=== PATIENT | male | born 1950 | race Caucasian/White ===

== ENCOUNTER 2020-04-12 13:43 | Inpatient (IN) | payer MEDICARE, BC ==
[2020-04-12] MEDS ORDERED: Acetaminophen 325 MG Tab PO PRN (13:57)
[2020-04-12] MEDS ORDERED: Ondansetron 4 MG/2 ML SDV IVPUSH PRN (13:57)
--- NOTE | 2020-04-12 14:09 | PCM.HP.2 ---
H&P History of Present Illness - General Date of Service: 04/12/20 Admit Problem/Dx: Admission Diagnosis/Problem Admission Diagnosis/Problem Acute respiratory failure with hypoxia Source of Information: Patient History Limitations: Reports: No Limitations - History of Present Illness Initial Comments - Free Text/Narative: This 69-year-old male with no significant past medical history presented to the respiratory clinic with worsening symptoms of fatigue, fever and dry cough. He was diagnosed with COVID-19 on April 02 with positive swab. He reports symptoms started mildly approximately 1 to 1-1/2 weeks ago with generalized body aches, runny nose, sore throat, and diarrhea and has progressively worsened to significant fever with a max temp at home of 102 F. Denies any overt loss of taste or smell. Today he reports worsening of shortness of breath and fatigue with any activity. He reports he showered prior to coming and had to take rests multiple times in the shower as well as getting dressed. He reports he has been eating and drinking yet appetite is slightly lower than normal but has been able to take in fluids well at home. Reports Tylenol and ibuprofen have been helping with fevers. Denies any chest pain or neck pain no palpitations. No abdominal pain no black or bloody bowel movements no concerns with urination. He denies any tobacco use recreational drug use or alcohol use. He reports no significant history of HTN, CAD or DM type II. In the clinic no leukocytosis noted, hemoglobin 13.1 D-dimer elevated at 1.69 sodium 135, BUN 17 CR 1.1, glucose 113, potassium 3.5. Flu swab is negative. Covid swab positive on April 05. Chest x-ray obtained in clinic reveals extensive interstitial and ground glass opacities of the bilateral hemothoraces likely representing developing multifocal bilateral infiltrates such as coronavirus infection. Hepatic function panel onto clinic labs. AST elevated at 113 ALT elevated at 178 and alk phos also elevated. He was noted to be satting 88% on room air placed on 2 L nasal cannula satting 94%. Provider requested admission due to hypoxia and COVID-19 infection. He will be admitted inpatient due to acute hypoxic respiratory failure and COVID-19 infection. - Related Data Allergies/Adverse Reactions: Allergies Allergy/AdvReac Type Severity Reaction Status Date / Time No Known Allergies Allergy Verified 04/12/20 14:59 Home Medications: Home Meds . [No Known Home Meds] 04/12/20 [History] Past Medical History Cardiovascular History: Reports: None. Denies: Afib, Blood Clots/VTE/DVT, CAD, Hypertension Respiratory History: Reports: None. Denies: Sleep Apnea, SOB Gastrointestinal History: Reports: None Genitourinary History: Reports: None Musculoskeletal History: Reports: None Endocrine/Metabolic History: Reports: None. Denies: Diabetes, Type II, Hypothyroidism Oncologic (Cancer) History: Reports: None - Past Surgical History Cardiovascular Surgical History: Reports: None GI Surgical History: Reports: None Male Surgical History: Reports: None Musculoskeletal Surgical History: Reports: None Social & Family History - Family History Family Medical History: No Pertinent Family History - Tobacco Use Tobacco Use Status *Q: Never Tobacco User - Alcohol Use Alcohol Use History: No Alcohol Use Frequency: Rarely, Socially - Recreational Drug Use Recreational Drug Use: No - Living Situation & Occupation Living situation: Reports: H&P Review of Systems - Review of Systems: Review Of Systems: See Below General: Reports: Fever, Chills, Malaise, Weakness, Fatigue HEENT: Reports: Rhinitis, Sore Throat. Denies: Visual Changes Pulmonary: Reports: Shortness of Breath, Cough. Denies: Sputum Cardiovascular: Reports: Dyspnea on Exertion. Denies: Chest Pain Gastrointestinal: Reports: No Symptoms, Diarrhea. Denies: Abdominal Pain, Nausea, Vomiting Genitourinary: Reports: No Symptoms. Denies: Dysuria, Frequency, Burning Musculoskeletal: Reports: No Symptoms Skin: Reports: No Symptoms Psychiatric: Reports: No Symptoms Neurological: Reports: No Symptoms Exam - Exam Exam: See Below - Exam Quality Assessment: Supplemental Oxygen (2 L nasal cannula), DVT Prophylaxis General: Alert, Oriented, Cooperative, Other (Appears to not feel well and fatigued) Neck: Supple, Trachea Midline Lungs: Clear to Auscultation, Normal Respiratory Effort Cardiovascular: Regular Rate, Regular Rhythm, Normal S1, Normal S2 GI/Abdominal Exam: Normal Bowel Sounds, Soft, Non-Tender Extremities: Normal Inspection, Normal Range of Motion, Non-Tender, No Pedal Edema Neuro Extensive - Mental Status: Alert, Oriented x3 Neuro Extensive - Motor, Sensory, Reflexes: CN II-XII Intact Psychiatric: Alert, Normal Affect, Normal Mood - Problem List (1) COVID-19 SNOMED Code(s): 143359953 ICD Code: U07.1 - COVID-19 Status: Acute Current Visit: Yes (2) Acute respiratory failure with hypoxia SNOMED Code(s): 32227593, 169407419 ICD Code: J96.01 - ACUTE RESPIRATORY FAILURE WITH HYPOXIA Status: Acute Current Visit: Yes (3) Transaminitis SNOMED Code(s): 007969368, 053491944 ICD Code: R74.01 - ELEVATION OF LEVELS OF LIVER TRANSAMINASE LEVELS Status: Acute Current Visit: Yes (4) D-dimer, elevated SNOMED Code(s): 056970020 ICD Code: R79.89 - OTHER SPECIFIED ABNORMAL FINDINGS OF BLOOD CHEMISTRY Status: Acute Current Visit: Yes Problem List Initiated/Reviewed/Updated: Yes Orders Last 24hrs: Active Orders 24 hr Category Date Time Status Patient Status [ADT] Routine ADT 04/12/20 13:57 Ordered Communication Order [RC] DAILY Care 04/12/20 13:57 Ordered Intake and Output [RC] QSHIFT Care 04/12/20 13:59 Ordered Oxygen Therapy [RC] PRN Care 04/12/20 13:57 Ordered Pulse Oximetry [RC] CONTINUOUS Care 04/12/20 13:59 Ordered RT Incentive Spirometry [RC] Q1HWA Care 04/12/20 13:57 Ordered Telemetry Monitoring [Cardiac Monitoring] [RC] . Care 04/12/20 14:05 Ordered DIRECTED Up With Assistance [RC] ASDIRECTED Care 04/12/20 13:57 Ordered VTE/DVT Education [RC] PER UNIT ROUTINE Care 04/12/20 13:57 Ordered Vital Signs [RC] Q4H Care 04/12/20 13:57 Ordered CBC WITH AUTO DIFF [HEME] AM Lab 04/13/20 05:11 Ordered COMPREHENSIVE METABOLIC PN,CMP [CHEM] AM Lab 04/13/20 05:11 Ordered HEPATIC FUNCTION PANEL,HFP [CHEM] Routine Lab 04/12/20 14:04 Ordered MAGNESIUM [CHEM] AM Lab 04/13/20 05:11 Ordered Acetaminophen [TylenoL] Med 04/12/20 13:57 Ordered 650 mg PO Q4H PRN Ondansetron [Zofran] Med 04/12/20 13:57 Ordered 4 mg IVPUSH Q4H PRN dexAMETHasone Med 04/12/20 14:15 Ordered 6 mg PO DAILY RT Acapella [RESPCARE] Routine Oth 04/12/20 13:57 Ordered Resuscitation Status Routine Resus Stat 04/12/20 13:57 Ordered Medication Orders Acetaminophen (Tylenol) 650 mg PO Q4H PRN PRN Reason: Pain (Mild 1-3)/fever Dexamethasone (Dexamethasone) 6 mg PO DAILY EMILY Stop: 04/21/20 09:01 Ondansetron HCl (Zofran) 4 mg IVPUSH Q4H PRN PRN Reason: Nausea Assessment/Plan Comment:: This 69-year-old male admitted with acute hypoxic respiratory failure and COVID- 19 infection 1. Acute hypoxic respiratory failure and COVID-19 infection -Chest x-ray reveals extensive bilateral lateral infiltrates D-dimer is elevated, will obtain a CTA of chest to rule out PE. -Dexamethasone 6 mg p.o. daily x10 days -Pending liver function will start remdesivir 200 mg x 1 dose then remdesivir 100 mg IV daily for 4 more days -Liver enzymes are slightly elevated but not 5 times normal limit monitor daily with remdesivir treatment. He Johnathan was notified of remdesivir given patient fact sheet on medication and agrees with usage. -Transaminitis and elevated D-dimer likely secondary to Covid infection. CTA chest pending -Oxygen to keep sats 92% or higher wean as possible to room air. -IS and Acapella frequently. -Combivent inhaler as needed wheezing shortness of breath -Prone positioning as much as possible or at least left lateral decubitus positioning -Lovenox 40 mg subcut daily VTE prophylaxis; Lovenox CODE STATUS: Full code Dispo: 2 to 3 days pending improvement - Mortality Measure Prognosis:: Good
[2020-04-12 14:29] LABS: BILIRUBIN INDIRECT 0.7
[2020-04-12] MEDS ORDERED: REMDESIVIR 200 MG in Sodium Chloride 0.9% 250 ML IV ONE (15:30)
[2020-04-12] MEDS ORDERED: Sodium Chloride 0.9% 500 ML IV ONE (16:00)
[2020-04-12] MEDS: Dexamethasone 4 MG Tab PO SCH (16:01)
[2020-04-12] MEDS: Enoxaparin 40 MG/0.4 ML Syringe SUBCUT SCH (16:02)
--- NOTE | 2020-04-12 17:12 | CT ---
Indication: Shortness of breath, positive for zimmerman virus 19 infection Technique: Volumetric multidetector CT images of the chest were obtained after the administration of IV contrast. 100 cc Isovue 370 low as molar intravenous contrast Comparison: Single view chest April 12, 2020 Findings: The thoracic inlet and thyroid gland are unremarkable. The thoracic aorta is nonaneurysmal. There is no central filling defect to suggest pulmonary embolism. There are reactive mediastinal and hilar lymph nodes as well as paratracheal lymph nodes. There is central bronchial thickening and minimal mucoid impaction of the lower lobe bronchi. There are extensive ground-glass and interstitial opacities seen throughout the bilateral hemithoraces commensurate with diffuse multifocal infiltrates which can be seen in the setting of zimmerman virus 19 infection There is no evidence of pulmonary mass or suspicious pulmonary nodule. The partially visualized upper abdominal viscera demonstrate mild pedal splenomegaly. The thoracic vertebral body heights are grossly maintained with minimal endplate Schmorl`s defects and degenerative disc disease. There is no significant spondylolisthesis or displaced fracture. Impression: No evidence of pulmonary embolus. Moderate bronchial thickening and extensive ground-glass and interstitial opacities consistent with history of zimmerman virus 19 infection. Please note that all CT scans at this facility use dose modulation, iterative reconstruction, and/or weight-based dosing when appropriate to reduce radiation dose to as low as reasonably achievable. Dictated by Jose D Sanches MD @ Apr 12 2020 4:53PM Signed by Dr. Jose D Sanches @ Apr 12 2020 5:10PM
[2020-04-12] MEDS ORDERED: Iopamidol 755 MG/ML 500 ML Multipack Bottle IVPUSH ONE (17:24)
[2020-04-12] MEDS: Albuterol/Ipratropium 4 GM Inhalation Spray INH PRN (20:29)
[2020-04-13 06:43] LABS: BLOOD UREA NITROGEN,BUN 18 mg/dL (7.0-18.0); CARBON DIOXIDE,CO2 27.4 mmol/L (21.0-32.0); CHLORIDE,CL 104 mmol/L (98-107); GLUCOSE RANDOM 138 mg/dL (74-106); POTASSIUM,K 3.5 mmol/L (3.5-5.1); SODIUM,NA 139 mmol/L (136-148)
[2020-04-13] MEDS: Pantoprazole 40 MG Tab.CR PO SCH (07:02)
[2020-04-13] MEDS: Dexamethasone 4 MG Tab PO SCH (08:19)
--- NOTE | 2020-04-13 09:37 | PCM.PN ---
- General Info Date of Service: 04/13/20 Subjective Update: Reports sleeping well overnight. Denies any fevers, chills, nausea or vomiting. Currently on 5 L NC. - Patient Data Vitals - Most Recent: Last Vital Signs Temp 35.7 C L 04/13/20 08:00 Pulse 74 04/13/20 08:00 Resp 18 04/13/20 08:00 BP 143/89 H 04/13/20 08:00 Pulse Ox 88 L 04/13/20 08:00 Weight - Most Recent: 93 kg I&O - Last 24 Hours: Intake & Output 04/12/20 04/13/20 04/13/20 22:59 06:59 14:59 Intake Total 580 750 Output Total 200 350 Balance 380 400 Lab Results Last 24 Hours: Laboratory Results - last 24 hr 04/12/20 04/13/20 04/13/20 Range/Units 11:43 05:55 05:55 WBC 5.13 (4.0-11.0) K/uL RBC 4.14 L (4.50-5.90) M/uL Hgb 11.6 L (13.0-17.0) g/dL Hct 34.6 L (38.0-50.0) % MCV 83.6 (80.0-98.0) fL MCH 28.0 (27.0-32.0) pg MCHC 33.5 (31.0-37.0) g/dL RDW Std Deviation 42.3 (28.0-62.0) fl RDW Coeff of Ortiz 14 (11.0-15.0) % Plt Count 285 (150-400) K/uL MPV 9.50 (7.40-12.00) fL Neut % (Auto) 83.8 H (48.0-80.0) % Lymph % (Auto) 7.6 L (16.0-40.0) % [place] % (Auto) 8.2 (0.0-15.0) % Eos % (Auto) 0.2 (0.0-7.0) % Baso % (Auto) 0.2 (0.0-1.5) % Neut # (Auto) 4.3 (1.4-5.7) K/uL Lymph # (Auto) 0.4 L (0.6-2.4) K/uL [place] # (Auto) 0.4 (0.0-0.8) K/uL Eos # (Auto) 0.0 (0.0-0.7) K/uL Baso # (Auto) 0.0 (0.0-0.1) K/uL Nucleated RBC % 0.0 /100WBC Nucleated RBCs # 0 K/uL Sodium 139 (136-148) mmol/L Potassium 3.5 (3.5-5.1) mmol/L Chloride 104 (98-107) mmol/L Carbon Dioxide 27.4 (21.0-32.0) mmol/L BUN 18 (7.0-18.0) mg/dL Creatinine 1.1 (0.8-1.3) mg/dL Est Cr Clr Drug Dosing 64.52 mL/min Estimated GFR (MDRD) > 60.0 ml/min Glucose 138 H (74-106) mg/dL Calcium 8.8 (8.5-10.1) mg/dL Magnesium 2.4 (1.8-2.4) mg/dL Total Bilirubin 1.1 H 0.5 (0.2-1.0) mg/dL Direct Bilirubin 0.40 (0.0-0.5) mg/dL Indirect Bilirubin 0.70 AST 114 H 62 H (15-37) IU/L ALT 178 H 151 H (14-63) IU/L Alkaline Phosphatase 248 H 210 H (46-116) U/L Total Protein 7.7 7.1 (6.4-8.2) g/dL Albumin 2.6 L 2.2 L (3.4-5.0) g/dL Globulin 5.1 H 4.9 H (2.6-4.0) g/dL Albumin/Globulin Ratio 0.5 L 0.5 L (0.9-1.6) Med Orders - Current: Current Medications Acetaminophen (Tylenol) 650 mg PO Q4H PRN PRN Reason: Pain (Mild 1-3)/fever Albuterol/Ipratropium (Combivent Respimat) 0 gm INH Q4H PRN PRN Reason: Dyspnea Last Admin: 04/12/20 20:29 Dose: 1 puff Documented by: Dexamethasone (Dexamethasone) 6 mg PO DAILY EMILY Stop: 04/21/20 09:01 Last Admin: 04/13/20 08:19 Dose: 6 mg Documented by: Enoxaparin Sodium (Lovenox) 40 mg SUBCUT Q24H [facility] Last Admin: 04/12/20 16:02 Dose: 40 mg Documented by: Remdesivir 100 mg/ Sodium (Chloride) 100 mls @ 100 mls/hr IV Q24H [facility] Stop: 04/16/20 15:59 Ondansetron HCl (Zofran) 4 mg IVPUSH Q4H PRN PRN Reason: Nausea Pantoprazole Sodium (Protonix) 40 mg PO ACBREAKFAST [facility] Last Admin: 04/13/20 07:02 Dose: 40 mg Documented by: Discontinued Medications Remdesivir 200 mg/ Sodium (Chloride) 250 mls @ 250 mls/hr IV ONETIME ONE Stop: 04/12/20 16:29 Last Admin: 04/12/20 16:01 Dose: 250 mls/hr Documented by: Sodium Chloride (Normal Saline) 500 mls @ 150 mls/hr IV ONETIME ONE Stop: 04/12/20 19:19 Last Admin: 04/12/20 16:01 Dose: 150 mls/hr Documented by: Iopamidol (Isovue Multipack-370 (76%)) 100 ml IVPUSH ONETIME ONE Stop: 04/12/20 17:25 Last Admin: 04/12/20 17:25 Dose: 100 ml Documented by: - Exam General: Alert, Oriented, Cooperative, No Acute Distress Lungs: Clear to Auscultation, Normal Respiratory Effort Cardiovascular: Regular Rate, Regular Rhythm GI/Abdominal Exam: Normal Bowel Sounds, Soft, Non-Tender, No Distention Extremities: Normal Inspection, No Pedal Edema Sepsis Event Note - Evaluation Sepsis Screening Result: No Definite Risk - Focused Exam Vital Signs: Vital Signs Temp Pulse Resp BP Pulse Ox 04/13/20 08:00 35.7 C L 74 18 143/89 H 88 L 04/13/20 04:49 36.1 C 81 18 150/80 H 95 04/13/20 03:07 94 L 04/13/20 02:00 95 04/13/20 00:59 36.1 C 89 18 148/75 H 94 L 04/12/20 23:00 94 L 04/12/20 22:00 72 95 - Problem List & Annotations (1) Acute respiratory failure with hypoxia SNOMED Code(s): 74410410, 748454938 Code(s): J96.01 - ACUTE RESPIRATORY FAILURE WITH HYPOXIA Status: Acute Current Visit: Yes (2) COVID-19 SNOMED Code(s): 120248097 Code(s): U07.1 - COVID-19 Status: Acute Current Visit: Yes (3) Transaminitis SNOMED Code(s): 555339068, 205320940 Code(s): R74.01 - ELEVATION OF LEVELS OF LIVER TRANSAMINASE LEVELS Status: Acute Current Visit: Yes - Problem List Review Problem List Initiated/Reviewed/Updated: Yes - Plan Plan:: Assessment and Plan: 1. Acute hypoxic respiratory failure and COVID-19 infection - Continue supplemental oxygen prn, Combivent, dexamethasone 6 mg qd, Remdesivir, PPI and encourage incentive spirometer use. Will order and transfuse 1 unit of convalescent plasma today. - Chest x-ray showed extensive bilateral lateral infiltrates. CTA of chest ruled out PE. - Patient given patient fact sheet for Remdesivir, risks explained and he consented for treatment. - Patient given patient fact sheet for convalescent plasma, risks explained and he consented for treatment. 2. Transaminitis, improved: - Will monitor. Will continue Remdesivir as LFT's not elevated by 5 x upper limit. 3. DVT prophylaxis: -Lovenox 40 mg subcut daily
[2020-04-13] MEDS: Enoxaparin 40 MG/0.4 ML Syringe SUBCUT SCH (14:48)
[2020-04-13] MEDS: REMDESIVIR 100 MG in Sodium Chloride 0.9% 100 ML IV SCH (14:49)
[2020-04-13] MEDS: Albuterol/Ipratropium 4 GM Inhalation Spray INH PRN (15:15)
[2020-04-14 06:52] LABS: BLOOD UREA NITROGEN,BUN 29 mg/dL (7.0-18.0); CARBON DIOXIDE,CO2 24.3 mmol/L (21.0-32.0); CHLORIDE,CL 106 mmol/L (98-107); GLUCOSE RANDOM 115 mg/dL (74-106); POTASSIUM,K 3.4 mmol/L (3.5-5.1); SODIUM,NA 141 mmol/L (136-148)
[2020-04-14] MEDS: Dexamethasone 4 MG Tab PO SCH (08:03)
[2020-04-14] MEDS: Pantoprazole 40 MG Tab.CR PO SCH (08:04)
--- NOTE | 2020-04-14 11:02 | PCM.PN ---
- General Info Date of Service: 04/14/20 - Review of Systems Systems Review Comment:: feeling better, shortness of breath improving - Patient Data Vitals - Most Recent: Last Vital Signs Temp 36.3 C 04/14/20 08:01 Pulse 77 04/14/20 08:01 Resp 20 04/14/20 08:01 BP 139/85 04/14/20 08:01 Pulse Ox 90 L 04/14/20 08:01 Weight - Most Recent: 93 kg I&O - Last 24 Hours: Intake & Output 04/13/20 04/14/20 04/14/20 22:59 06:59 14:59 Intake Total 1185 550 Balance 1185 550 Lab Results Last 24 Hours: Laboratory Results - last 24 hr 04/13/20 04/13/20 04/14/20 Range/Units 13:56 14:15 05:45 WBC 9.16 (4.0-11.0) K/uL RBC 3.96 L (4.50-5.90) M/uL Hgb 11.2 L (13.0-17.0) g/dL Hct 33.2 L (38.0-50.0) % MCV 83.8 (80.0-98.0) fL MCH 28.3 (27.0-32.0) pg MCHC 33.7 (31.0-37.0) g/dL RDW Std Deviation 43.6 (28.0-62.0) fl RDW Coeff of Ortiz 14 (11.0-15.0) % Plt Count 335 (150-400) K/uL MPV 9.60 (7.40-12.00) fL Neut % (Auto) 84.2 H (48.0-80.0) % Lymph % (Auto) 9.3 L (16.0-40.0) % [place] % (Auto) 6.3 (0.0-15.0) % Eos % (Auto) 0.1 (0.0-7.0) % Baso % (Auto) 0.1 (0.0-1.5) % Neut # (Auto) 7.7 H (1.4-5.7) K/uL Lymph # (Auto) 0.9 (0.6-2.4) K/uL [place] # (Auto) 0.6 (0.0-0.8) K/uL Eos # (Auto) 0.0 (0.0-0.7) K/uL Baso # (Auto) 0.0 (0.0-0.1) K/uL Nucleated RBC % 0.0 /100WBC Nucleated RBCs # 0 K/uL INR Cancelled APTT Cancelled Sodium (136-148) mmol/L Potassium (3.5-5.1) mmol/L Chloride (98-107) mmol/L Carbon Dioxide (21.0-32.0) mmol/L BUN (7.0-18.0) mg/dL Creatinine (0.8-1.3) mg/dL Est Cr Clr Drug Dosing mL/min Estimated GFR (MDRD) ml/min Glucose (74-106) mg/dL Calcium (8.5-10.1) mg/dL Total Bilirubin (0.2-1.0) mg/dL AST (15-37) IU/L ALT (14-63) IU/L Alkaline Phosphatase (46-116) U/L Total Protein (6.4-8.2) g/dL Albumin (3.4-5.0) g/dL Globulin (2.6-4.0) g/dL Albumin/Globulin Ratio (0.9-1.6) Blood Type O POSITIVE Antibody Screen NEGATIVE 04/14/20 Range/Units 05:45 WBC (4.0-11.0) K/uL RBC (4.50-5.90) M/uL Hgb (13.0-17.0) g/dL Hct (38.0-50.0) % MCV (80.0-98.0) fL MCH (27.0-32.0) pg MCHC (31.0-37.0) g/dL RDW Std Deviation (28.0-62.0) fl RDW Coeff of Ortiz (11.0-15.0) % Plt Count (150-400) K/uL MPV (7.40-12.00) fL Neut % (Auto) (48.0-80.0) % Lymph % (Auto) (16.0-40.0) % [place] % (Auto) (0.0-15.0) % Eos % (Auto) (0.0-7.0) % Baso % (Auto) (0.0-1.5) % Neut # (Auto) (1.4-5.7) K/uL Lymph # (Auto) (0.6-2.4) K/uL [place] # (Auto) (0.0-0.8) K/uL Eos # (Auto) (0.0-0.7) K/uL Baso # (Auto) (0.0-0.1) K/uL Nucleated RBC % /100WBC Nucleated RBCs # K/uL INR APTT Sodium 141 (136-148) mmol/L Potassium 3.4 L (3.5-5.1) mmol/L Chloride 106 (98-107) mmol/L Carbon Dioxide 24.3 (21.0-32.0) mmol/L BUN 29 H (7.0-18.0) mg/dL Creatinine 1.1 (0.8-1.3) mg/dL Est Cr Clr Drug Dosing 64.52 mL/min Estimated GFR (MDRD) > 60.0 ml/min Glucose 115 H (74-106) mg/dL Calcium 8.5 (8.5-10.1) mg/dL Total Bilirubin 0.4 (0.2-1.0) mg/dL AST 44 H (15-37) IU/L ALT 124 H (14-63) IU/L Alkaline Phosphatase 175 H (46-116) U/L Total Protein 6.6 (6.4-8.2) g/dL Albumin 2.2 L (3.4-5.0) g/dL Globulin 4.4 H (2.6-4.0) g/dL Albumin/Globulin Ratio 0.5 L (0.9-1.6) Blood Type Antibody Screen Med Orders - Current: Current Medications Acetaminophen (Tylenol) 650 mg PO Q4H PRN PRN Reason: Pain (Mild 1-3)/fever Albuterol/Ipratropium (Combivent Respimat) 0 gm INH Q4H PRN PRN Reason: Dyspnea Last Admin: 04/13/20 15:15 Dose: 1 puff Documented by: Dexamethasone (Dexamethasone) 6 mg PO DAILY EMIYL Stop: 04/21/20 09:01 Last Admin: 04/14/20 08:03 Dose: 6 mg Documented by: Enoxaparin Sodium (Lovenox) 40 mg SUBCUT Q24H [facility] Last Admin: 04/13/20 14:48 Dose: 40 mg Documented by: Remdesivir 100 mg/ Sodium (Chloride) 100 mls @ 100 mls/hr IV Q24H [facility] Stop: 04/16/20 15:59 Last Admin: 04/13/20 14:49 Dose: 100 mls/hr Documented by: Ondansetron HCl (Zofran) 4 mg IVPUSH Q4H PRN PRN Reason: Nausea Pantoprazole Sodium (Protonix) 40 mg PO ACBREAKFAST [facility] Last Admin: 04/14/20 08:04 Dose: Not Given Documented by: Discontinued Medications Remdesivir 200 mg/ Sodium (Chloride) 250 mls @ 250 mls/hr IV ONETIME ONE Stop: 04/12/20 16:29 Last Admin: 04/12/20 16:01 Dose: 250 mls/hr Documented by: Sodium Chloride (Normal Saline) 500 mls @ 150 mls/hr IV ONETIME ONE Stop: 04/12/20 19:19 Last Admin: 04/12/20 16:01 Dose: 150 mls/hr Documented by: Iopamidol (Isovue Multipack-370 (76%)) 100 ml IVPUSH ONETIME ONE Stop: 04/12/20 17:25 Last Admin: 04/12/20 17:25 Dose: 100 ml Documented by: - Exam General: Alert, Oriented Neck: Supple Lungs: Clear to Auscultation, Normal Respiratory Effort Cardiovascular: Regular Rate, Regular Rhythm GI/Abdominal Exam: Normal Bowel Sounds, Soft, Non-Tender Extremities: Non-Tender, No Pedal Edema Skin: Warm, Dry, Intact Neurological: No New Focal Deficit Sepsis Event Note - Evaluation Sepsis Screening Result: No Definite Risk - Focused Exam Vital Signs: Vital Signs Temp Pulse Resp BP Pulse Ox Pulse Ox 04/14/20 08:01 36.3 C 77 20 139/85 90 L 04/14/20 04:53 93 L 04/14/20 03:31 36.2 C 70 20 144/84 H 93 L 04/14/20 02:09 92 L 04/13/20 23:05 79 20 91 L - Problem List Review Problem List Initiated/Reviewed/Updated: Yes - My Orders Last 24 Hours: My Active Orders 04/14/20 10:59 Transfuse Fresh Frozen Plasma [COMM] Routine - Plan Plan:: Assessment and Plan: 1. Acute hypoxic respiratory failure and COVID-19 infection - On 5 L NC, Combivent, dexamethasone 6 mg qd, Remdesivir, PPI and encourage incentive spirometer use. Will transfuse 2nd unit of convalescent plasma. - Chest x-ray showed extensive bilateral lateral infiltrates. CTA of chest ruled out PE. 2. Transaminitis, improved: - Will monitor. Will continue Remdesivir as LFT's not elevated by 5 x upper limit. 3. DVT prophylaxis: -Lovenox 40 mg subcut daily
[2020-04-14] MEDS: REMDESIVIR 100 MG in Sodium Chloride 0.9% 100 ML IV SCH (15:20)
[2020-04-14] MEDS: Enoxaparin 40 MG/0.4 ML Syringe SUBCUT SCH (16:29)
[2020-04-15 06:11] LABS: BLOOD UREA NITROGEN,BUN 34 mg/dL (7.0-18.0); CARBON DIOXIDE,CO2 24.3 mmol/L (21.0-32.0); CHLORIDE,CL 109 mmol/L (98-107); GLUCOSE RANDOM 100 mg/dL (74-106); POTASSIUM,K 3.4 mmol/L (3.5-5.1); SODIUM,NA 145 mmol/L (136-148)
--- NOTE | 2020-04-15 08:02 | PCM.PN ---
- General Info Date of Service: 04/15/20 Admission Dx/Problem (Free Text): Admission Diagnosis/Problem Admission Diagnosis/Problem Acute respiratory failure with hypoxia Subjective Update: Reports he is feeling well this morning. He is very anxious to go home and re quest discharge today. Denies any chest pain reports mild shortness of breath but otherwise he feels he has improved significantly from arrival. Denies any productive cough. Feels as though his could take better care of him at home as well he is needing his oxygen. Functional Status: Reports: Pain Controlled, Tolerating Diet, Ambulating, Urinating - Review of Systems General: Reports: Fatigue, Malaise (Generalized) Pulmonary: Reports: Shortness of Breath, Cough (Nonproductive) Cardiovascular: Reports: Dyspnea on Exertion. Denies: Chest Pain Gastrointestinal: Reports: No Symptoms. Denies: Abdominal Pain, Nausea, Vomiting Genitourinary: Reports: No Symptoms Musculoskeletal: Reports: No Symptoms Neurological: Reports: No Symptoms Psychiatric: Reports: No Symptoms - Patient Data Vitals - Most Recent: Last Vital Signs Temp 97.1 F 04/15/20 04:00 Pulse 73 04/15/20 04:00 Resp 20 04/15/20 04:00 BP 159/93 H 04/15/20 04:00 Pulse Ox 92 L 04/15/20 04:00 Weight - Most Recent: 93 kg I&O - Last 24 Hours: Intake & Output 04/14/20 04/15/20 04/15/20 22:59 06:59 14:59 Intake Total 807 300 Output Total 600 250 Balance 207 50 Lab Results Last 24 Hours: Laboratory Results - last 24 hr 04/13/20 04/15/20 04/15/20 Range/Units 14:15 05:35 05:35 WBC 6.72 (4.0-11.0) K/uL RBC 4.01 L (4.50-5.90) M/uL Hgb 11.1 L (13.0-17.0) g/dL Hct 34.2 L (38.0-50.0) % MCV 85.3 (80.0-98.0) fL MCH 27.7 (27.0-32.0) pg MCHC 32.5 (31.0-37.0) g/dL RDW Std Deviation 44.4 (28.0-62.0) fl RDW Coeff of Ortiz 14 (11.0-15.0) % Plt Count 328 (150-400) K/uL MPV 9.20 (7.40-12.00) fL Neut % (Auto) 74.0 (48.0-80.0) % Lymph % (Auto) 15.3 L (16.0-40.0) % [place] % (Auto) 9.4 (0.0-15.0) % Eos % (Auto) 1.2 (0.0-7.0) % Baso % (Auto) 0.1 (0.0-1.5) % Neut # (Auto) 5.0 (1.4-5.7) K/uL Lymph # (Auto) 1.0 (0.6-2.4) K/uL [place] # (Auto) 0.6 (0.0-0.8) K/uL Eos # (Auto) 0.1 (0.0-0.7) K/uL Baso # (Auto) 0.0 (0.0-0.1) K/uL Nucleated RBC % 0.0 /100WBC Nucleated RBCs # 0 K/uL Sodium 145 (136-148) mmol/L Potassium 3.4 L (3.5-5.1) mmol/L Chloride 109 H (98-107) mmol/L Carbon Dioxide 24.3 (21.0-32.0) mmol/L BUN 34 H (7.0-18.0) mg/dL Creatinine 1.1 (0.8-1.3) mg/dL Est Cr Clr Drug Dosing 64.52 mL/min Estimated GFR (MDRD) > 60.0 ml/min Glucose 100 (74-106) mg/dL Calcium 8.4 L (8.5-10.1) mg/dL Total Bilirubin 0.4 (0.2-1.0) mg/dL AST 60 H (15-37) IU/L ALT 125 H (14-63) IU/L Alkaline Phosphatase 151 H (46-116) U/L Total Protein 6.7 (6.4-8.2) g/dL Albumin 2.3 L (3.4-5.0) g/dL Globulin 4.4 H (2.6-4.0) g/dL Albumin/Globulin Ratio 0.5 L (0.9-1.6) Blood Type O POSITIVE Antibody Screen NEGATIVE Med Orders - Current: Current Medications Acetaminophen (Tylenol) 650 mg PO Q4H PRN PRN Reason: Pain (Mild 1-3)/fever Albuterol/Ipratropium (Combivent Respimat) 0 gm INH Q4H PRN PRN Reason: Dyspnea Last Admin: 04/13/20 15:15 Dose: 1 puff Documented by: Dexamethasone (Dexamethasone) 6 mg PO DAILY [facility] Stop: 04/21/20 09:01 Last Admin: 04/14/20 08:03 Dose: 6 mg Documented by: Enoxaparin Sodium (Lovenox) 40 mg SUBCUT Q24H [facility] Last Admin: 04/14/20 16:29 Dose: 40 mg Documented by: Remdesivir 100 mg/ Sodium (Chloride) 100 mls @ 100 mls/hr IV Q24H [facility] Stop: 04/16/20 15:59 Last Admin: 04/14/20 15:20 Dose: 100 mls/hr Documented by: Ondansetron HCl (Zofran) 4 mg IVPUSH Q4H PRN PRN Reason: Nausea Pantoprazole Sodium (Protonix) 40 mg PO ACBREAKFAST [facility] Last Admin: 04/14/20 08:04 Dose: Not Given Documented by: Discontinued Medications Remdesivir 200 mg/ Sodium (Chloride) 250 mls @ 250 mls/hr IV ONETIME ONE Stop: 04/12/20 16:29 Last Admin: 04/12/20 16:01 Dose: 250 mls/hr Documented by: Sodium Chloride (Normal Saline) 500 mls @ 150 mls/hr IV ONETIME ONE Stop: 04/12/20 19:19 Last Admin: 04/12/20 16:01 Dose: 150 mls/hr Documented by: Iopamidol (Isovue Multipack-370 (76%)) 100 ml IVPUSH ONETIME ONE Stop: 04/12/20 17:25 Last Admin: 04/12/20 17:25 Dose: 100 ml Documented by: - Exam Quality Assessment: Supplemental Oxygen, DVT Prophylaxis General: Alert, Oriented, Cooperative Lungs: Normal Respiratory Effort (Noted to be dyspneic especially on exertion), Decreased Breath Sounds (Bibasilar) Cardiovascular: Regular Rate, Regular Rhythm GI/Abdominal Exam: Normal Bowel Sounds, Soft, Non-Tender Back Exam: Normal Inspection, Full Range of Motion Extremities: Normal Inspection, Normal Range of Motion, Non-Tender, No Pedal Edema Neurological: No New Focal Deficit Psy/Mental Status: Alert, Normal Affect, Normal Mood Sepsis Event Note - Evaluation Sepsis Screening Result: No Definite Risk - Focused Exam Vital Signs: Vital Signs Temp Pulse Resp BP Pulse Ox 04/15/20 04:00 97.1 F 73 20 159/93 H 92 L 04/15/20 02:09 5 L 04/14/20 23:48 97.4 F 72 20 155/90 H 95 - Problem List & Annotations (1) COVID-19 SNOMED Code(s): 782803232 Code(s): U07.1 - COVID-19 Status: Acute Current Visit: Yes (2) Acute respiratory failure with hypoxia SNOMED Code(s): 64409898, 092278850 Code(s): J96.01 - ACUTE RESPIRATORY FAILURE WITH HYPOXIA Status: Acute Current Visit: Yes (3) Transaminitis SNOMED Code(s): 685454176, 716462538 Code(s): R74.01 - ELEVATION OF LEVELS OF LIVER TRANSAMINASE LEVELS Status: Acute Current Visit: Yes (4) D-dimer, elevated SNOMED Code(s): 275040720 Code(s): R79.89 - OTHER SPECIFIED ABNORMAL FINDINGS OF BLOOD CHEMISTRY Status: Acute Current Visit: Yes - Problem List Review Problem List Initiated/Reviewed/Updated: Yes - Plan Plan:: This 69-year-old male admitted with acute hypoxic respiratory failure and COVID- 19 infection 1. Acute hypoxic respiratory failure and COVID-19 infection -Chest x-ray reveals extensive bilateral lateral infiltrates D-dimer is elevated, CTA ruled out PE -Dexamethasone 6 mg p.o. daily x10 days -Continue oxygen currently on 5 to 6 L high flow nasal cannula -Oxygen to keep sats 92% or higher wean as possible to room air. -IS and Acapella frequently. -Combivent inhaler as needed wheezing shortness of breath -Prone positioning as much as possible or at least left lateral decubitus positioning -Lovenox 40 mg subcut daily 2. Transaminitis -Improving since admission. -Monitor daily with remdesivir treatment VTE prophylaxis; Lovenox CODE STATUS: Full code Dispo: 2 to 3 days pending improvement Spoke at length with Johnathan today regarding need for continued hospitalization due to acute illness. After some convincing and counseling he is aware he needs to stay in the hospital to continue to improve. I did speak with , Susan, this afternoon regarding stay in some of his concerns. She was also able to speak with him regarding his need to stay in the hospital.
[2020-04-15] MEDS: Pantoprazole 40 MG Tab.CR PO SCH (08:06)
[2020-04-15] MEDS: Dexamethasone 4 MG Tab PO SCH (08:06)
[2020-04-15] MEDS: Benzonatate 100 MG Cap PO PRN ×2 (10:13→21:28)
[2020-04-15] MEDS: Benzocaine/Cetylpyridinium/Menthol Lozenge MUCMEM PRN ×2 (12:07→21:29)
[2020-04-15] MEDS: Enoxaparin 40 MG/0.4 ML Syringe SUBCUT SCH (14:51)
[2020-04-15] MEDS: REMDESIVIR 100 MG in Sodium Chloride 0.9% 100 ML IV SCH (14:52)
[2020-04-15] MEDS ORDERED: Melatonin 3 MG Tab PO ONE (20:20)
[2020-04-16 07:20] LABS: BLOOD UREA NITROGEN,BUN 28 mg/dL (7.0-18.0); CARBON DIOXIDE,CO2 24.7 mmol/L (21.0-32.0); CHLORIDE,CL 109 mmol/L (98-107); GLUCOSE RANDOM 100 mg/dL (74-106); POTASSIUM,K 3.6 mmol/L (3.5-5.1); SODIUM,NA 143 mmol/L (136-148)
--- NOTE | 2020-04-16 08:07 | PCM.PN ---
- General Info Date of Service: 04/16/20 Admission Dx/Problem (Free Text): Admission Diagnosis/Problem Admission Diagnosis/Problem Acute respiratory failure with hypoxia Subjective Update: Feeling much improved today has not really slept well felt like the pulse oxim etry was keeping him awake all night denies any chest pain cough is dry. Ambulating to the bathroom. Eager for discharge but realizes that he is continuing to need oxygen. Functional Status: Reports: Pain Controlled, Tolerating Diet, Ambulating, Urinating - Review of Systems General: Reports: Fatigue, Malaise HEENT: Reports: No Symptoms. Denies: Headaches, Sore Throat, Visual Changes Pulmonary: Reports: Shortness of Breath (Continues to prove), Cough. Denies: Sputum, Wheezing Cardiovascular: Reports: Dyspnea on Exertion Gastrointestinal: Reports: No Symptoms. Denies: Abdominal Pain, Nausea, Vomiting Genitourinary: Reports: No Symptoms Musculoskeletal: Reports: No Symptoms Skin: Reports: No Symptoms Neurological: Reports: No Symptoms Psychiatric: Reports: No Symptoms - Patient Data Vitals - Most Recent: Last Vital Signs Temp 97.5 F 04/16/20 08:00 Pulse 69 04/16/20 08:00 Resp 18 04/16/20 08:00 BP 134/76 04/16/20 08:00 Pulse Ox 94 L 04/16/20 08:00 Weight - Most Recent: 93 kg I&O - Last 24 Hours: Intake & Output 04/15/20 04/16/20 04/16/20 22:59 06:59 14:59 Intake Total 850 700 Output Total 250 450 Balance 600 250 Lab Results Last 24 Hours: Laboratory Results - last 24 hr 04/16/20 04/16/20 Range/Units 06:38 06:38 WBC 6.82 (4.0-11.0) K/uL RBC 4.00 L (4.50-5.90) M/uL Hgb 11.0 L (13.0-17.0) g/dL Hct 34.2 L (38.0-50.0) % MCV 85.5 (80.0-98.0) fL MCH 27.5 (27.0-32.0) pg MCHC 32.2 (31.0-37.0) g/dL RDW Std Deviation 43.9 (28.0-62.0) fl RDW Coeff of Ortiz 14 (11.0-15.0) % Plt Count 325 (150-400) K/uL MPV 9.10 (7.40-12.00) fL Neut % (Auto) 74.1 (48.0-80.0) % Lymph % (Auto) 16.4 (16.0-40.0) % [place] % (Auto) 8.4 (0.0-15.0) % Eos % (Auto) 1.0 (0.0-7.0) % Baso % (Auto) 0.1 (0.0-1.5) % Neut # (Auto) 5.1 (1.4-5.7) K/uL Lymph # (Auto) 1.1 (0.6-2.4) K/uL [place] # (Auto) 0.6 (0.0-0.8) K/uL Eos # (Auto) 0.1 (0.0-0.7) K/uL Baso # (Auto) 0.0 (0.0-0.1) K/uL Nucleated RBC % 0.0 /100WBC Nucleated RBCs # 0 K/uL Sodium 143 (136-148) mmol/L Potassium 3.6 (3.5-5.1) mmol/L Chloride 109 H (98-107) mmol/L Carbon Dioxide 24.7 (21.0-32.0) mmol/L BUN 28 H (7.0-18.0) mg/dL Creatinine 1.1 (0.8-1.3) mg/dL Est Cr Clr Drug Dosing 64.52 mL/min Estimated GFR (MDRD) > 60.0 ml/min Glucose 100 (74-106) mg/dL Calcium 8.3 L (8.5-10.1) mg/dL Total Bilirubin 0.5 (0.2-1.0) mg/dL AST 51 H (15-37) IU/L ALT 123 H (14-63) IU/L Alkaline Phosphatase 133 H (46-116) U/L Total Protein 6.5 (6.4-8.2) g/dL Albumin 2.3 L (3.4-5.0) g/dL Globulin 4.2 H (2.6-4.0) g/dL Albumin/Globulin Ratio 0.6 L (0.9-1.6) Med Orders - Current: Current Medications Acetaminophen (Tylenol) 650 mg PO Q4H PRN PRN Reason: Pain (Mild 1-3)/fever Albuterol/Ipratropium (Combivent Respimat) 0 gm INH Q4H PRN PRN Reason: Dyspnea Last Admin: 04/13/20 15:15 Dose: 1 puff Documented by: Benzocaine/Menthol (Cepacol Sore Throat) 1 lozenge MUCMEM Q2H PRN PRN Reason: Sore Throat Last Admin: 04/15/20 21:29 Dose: 1 lozenge Documented by: Benzonatate (Tessalon Perles) 200 mg PO TID PRN PRN Reason: Cough Last Admin: 04/15/20 21:28 Dose: 200 mg Documented by: Dexamethasone (Dexamethasone) 6 mg PO DAILY [facility] Stop: 04/21/20 09:01 Last Admin: 04/15/20 08:06 Dose: 6 mg Documented by: Enoxaparin Sodium (Lovenox) 40 mg SUBCUT Q24H [facility] Last Admin: 04/15/20 14:51 Dose: 40 mg Documented by: Remdesivir 100 mg/ Sodium (Chloride) 100 mls @ 100 mls/hr IV Q24H [facility] Stop: 04/16/20 15:59 Last Admin: 04/15/20 14:52 Dose: 100 mls/hr Documented by: Ondansetron HCl (Zofran) 4 mg IVPUSH Q4H PRN PRN Reason: Nausea Pantoprazole Sodium (Protonix) 40 mg PO ACBREAKFAST [facility] Last Admin: 04/15/20 08:06 Dose: 40 mg Documented by: Discontinued Medications Remdesivir 200 mg/ Sodium (Chloride) 250 mls @ 250 mls/hr IV ONETIME ONE Stop: 04/12/20 16:29 Last Admin: 04/12/20 16:01 Dose: 250 mls/hr Documented by: Sodium Chloride (Normal Saline) 500 mls @ 150 mls/hr IV ONETIME ONE Stop: 04/12/20 19:19 Last Admin: 04/12/20 16:01 Dose: 150 mls/hr Documented by: Iopamidol (Isovue Multipack-370 (76%)) 100 ml IVPUSH ONETIME ONE Stop: 04/12/20 17:25 Last Admin: 04/12/20 17:25 Dose: 100 ml Documented by: Melatonin (Melatonin) 6 mg PO ONETIME ONE Stop: 04/15/20 20:21 Last Admin: 04/15/20 21:29 Dose: 6 mg Documented by: - Exam Quality Assessment: Supplemental Oxygen (Has been weaned down today to 3-1/2 sometimes 2-1/2 L we will continue to monitor) General: Alert, Oriented, Cooperative, No Acute Distress Neck: Supple Lungs: Normal Respiratory Effort, Crackles (Bibasilar) Cardiovascular: Regular Rate, Regular Rhythm GI/Abdominal Exam: Normal Bowel Sounds, Soft, Non-Tender Extremities: Normal Inspection, Normal Range of Motion, Non-Tender, No Pedal Edema Neurological: No New Focal Deficit Psy/Mental Status: Alert, Normal Affect, Normal Mood Sepsis Event Note - Evaluation Sepsis Screening Result: No Definite Risk - Focused Exam Vital Signs: Vital Signs Temp Pulse Resp BP Pulse Ox Pulse Ox 04/16/20 08:00 97.5 F 69 18 134/76 94 L 04/16/20 05:00 94 L 04/16/20 04:00 97.0 F 65 18 157/87 H 94 L 04/16/20 03:00 93 L 04/15/20 23:30 57 L 20 95 04/15/20 21:49 96.9 F 53 L 20 145/89 H 94 L - Problem List & Annotations (1) COVID-19 SNOMED Code(s): 754631013 Code(s): U07.1 - COVID-19 Status: Acute Current Visit: Yes (2) Acute respiratory failure with hypoxia SNOMED Code(s): 74911649, 003199816 Code(s): J96.01 - ACUTE RESPIRATORY FAILURE WITH HYPOXIA Status: Acute Current Visit: Yes (3) Transaminitis SNOMED Code(s): 399828117, 349511238 Code(s): R74.01 - ELEVATION OF LEVELS OF LIVER TRANSAMINASE LEVELS Status: Acute Current Visit: Yes (4) D-dimer, elevated SNOMED Code(s): 145248624 Code(s): R79.89 - OTHER SPECIFIED ABNORMAL FINDINGS OF BLOOD CHEMISTRY Status: Acute Current Visit: Yes - Problem List Review Problem List Initiated/Reviewed/Updated: Yes - My Orders Last 24 Hours: My Active Orders 04/15/20 09:27 Benzocaine/Cetylpyrd/Menthol [Cepacol Sore Throat] 1 lozenge MUCMEM Q2H PRN Benzonatate [Tessalon Perles] 200 mg PO TID PRN 04/17/20 05:11 CBC WITH AUTO DIFF [HEME] AM COMPREHENSIVE METABOLIC PN,CMP [CHEM] AM 04/18/20 05:11 CBC WITH AUTO DIFF [HEME] AM COMPREHENSIVE METABOLIC PN,CMP [CHEM] AM - Plan Plan:: This 69-year-old male admitted with acute hypoxic respiratory failure and COVID- 19 infection 1. Acute hypoxic respiratory failure and COVID-19 infection -Continues to improve -Dexamethasone 6 mg p.o. daily x10 days -Continue oxygen currently on 2-3-1/2 liters nasal cannula -Oxygen to keep sats 92% or higher wean as possible to room air. -IS and Acapella frequently. -Combivent inhaler as needed wheezing shortness of breath -Prone positioning as much as possible or at least left lateral decubitus positioning -Lovenox 40 mg subcut daily 2. Transaminitis -Improving since admission. -Monitor daily with remdesivir treatment VTE prophylaxis; Lovenox CODE STATUS: Full code Dispo: 2 to 3 days pending improvement. Consider discharge tomorrow if oxygen needs continue to decrease may need to have oxygen at home. .
[2020-04-16] MEDS: Dexamethasone 4 MG Tab PO SCH (08:08)
[2020-04-16] MEDS: Pantoprazole 40 MG Tab.CR PO SCH (08:08)
[2020-04-16] MEDS: Benzocaine/Cetylpyridinium/Menthol Lozenge MUCMEM PRN ×3 (10:57→20:55)
[2020-04-16] MEDS ORDERED: Furosemide 20 MG/2 ML VIAL IVPUSH ONE (11:08)
[2020-04-16] MEDS: Enoxaparin 40 MG/0.4 ML Syringe SUBCUT SCH (15:45)
[2020-04-16] MEDS: REMDESIVIR 100 MG in Sodium Chloride 0.9% 100 ML IV SCH (15:46)
[2020-04-17 06:26] LABS: BLOOD UREA NITROGEN,BUN 26 mg/dL (7.0-18.0); CARBON DIOXIDE,CO2 26.3 mmol/L (21.0-32.0); CHLORIDE,CL 106 mmol/L (98-107); GLUCOSE RANDOM 96 mg/dL (74-106); POTASSIUM,K 3.6 mmol/L (3.5-5.1); SODIUM,NA 141 mmol/L (136-148)
[2020-04-17] MEDS: Pantoprazole 40 MG Tab.CR PO SCH (07:58)
[2020-04-17] MEDS: Benzocaine/Cetylpyridinium/Menthol Lozenge MUCMEM PRN (07:59)
[2020-04-17] MEDS: Dexamethasone 4 MG Tab PO SCH (08:00)
--- NOTE | 2020-04-17 10:54 | PCM.DCSUM1 ---
Discharge Summary - Hospital Course Brief History: This 69-year-old male with no significant past medical history presented to the respiratory clinic with worsening symptoms of fatigue, fever and dry cough. He was diagnosed with COVID-19 on April 02 with positive swab. He reports symptoms started mildly approximately 1 to 1-1/2 weeks ago with generalized body aches, runny nose, sore throat, and diarrhea and has progressively worsened to significant fever with a max temp at home of 102 F. Denies any overt loss of taste or smell. Today he reports worsening of shortness of breath and fatigue with any activity. He reports he showered prior to coming and had to take rests multiple times in the shower as well as getting dressed. He reports he has been eating and drinking yet appetite is slightly lower than normal but has been able to take in fluids well at home. Reports Tylenol and ibuprofen have been helping with fevers. Denies any chest pain or neck pain no palpitations. No abdominal pain no black or bloody bowel movements no concerns with urination. He denies any tobacco use recreational drug use or alcohol use. He reports no significant history of HTN, CAD or DM type II. In the clinic no leukocytosis noted, hemoglobin 13.1 D-dimer elevated at 1.69 sodium 135, BUN 17 CR 1.1, glucose 113, potassium 3.5. Flu swab is negative. Covid swab positive on April 05. Chest x-ray obtained in clinic reveals extensive interstitial and ground glass opacities of the bilateral hemothoraces likely representing developing multifocal bilateral infiltrates such as coronavirus infection. Hepatic function panel onto clinic labs. AST elevated at 113 ALT elevated at 178 and alk phos also elevated. He was noted to be satting 88% on room air placed on 2 L nasal cannula satting 94%. Provider requested admission due to hypoxia and COVID-19 infection. He will be admitted inpatient due to acute hypoxic respiratory failure and COVID-19 infection. - Discharge Data Discharge Date: 04/17/20 Discharge Disposition: Home, Self-Care 01 Condition: Good - Referral to Home Health Primary Care Physician: PCP None - Discharge Diagnosis/Problem(s) (1) COVID-19 SNOMED Code(s): 783688020 ICD Code: U07.1 - COVID-19 Status: Acute Current Visit: Yes (2) Acute respiratory failure with hypoxia SNOMED Code(s): 74131722, 605895909 ICD Code: J96.01 - ACUTE RESPIRATORY FAILURE WITH HYPOXIA Status: Acute Current Visit: Yes (3) Transaminitis SNOMED Code(s): 320835302, 288810477 ICD Code: R74.01 - ELEVATION OF LEVELS OF LIVER TRANSAMINASE LEVELS Status: Acute Current Visit: Yes (4) D-dimer, elevated SNOMED Code(s): 552284257 ICD Code: R79.89 - OTHER SPECIFIED ABNORMAL FINDINGS OF BLOOD CHEMISTRY Status: Acute Current Visit: Yes - Patient Summary/Data Hospital Course: Admitting diagnoses Acute hypoxic respiratory failure COVID-19 pneumonia Elevated D-dimer Transaminitis Discharge diagnoses Acute hypoxic respiratory failure COVID-19 pneumonia Elevated D-dimer Transaminitis Johnathan was admitted secondary to her acute hypoxic respiratory failure related to COVID-19 pneumonia. He was placed on oxygen along with remdesivir, dexamethasone, Combivent, and Lovenox. During his stay he had increased to oxygen needs of 7 L high flow nasal cannula but then was slowly weaned down to 2 L nasal cannula. CTA of the chest was obtained on admission. No PE found, but consistent with bilateral viral infection. Today he is feeling significantly improved and very eager to go home. He has received 5 days of remdesivir treatment along with 5 days of dexamethasone. During room air challenge she was noted to be satting 90 to 91% on room air but did drop to low 80% with ambulation. He was placed on 2 L of oxygen and noted to be satting 91 to 92% on 2 L with activity. He will be discharged home with oxygen 2 L per nasal cannula continuously especially with activity. He was counseled on relaxing and resting at home. He is not to do strenuous activity until he is feeling much better. He is also to monitor his oxygen via pulse oximetry. I did speak with who has EMT knowledge and feels comfortable monitoring his oxygen saturations at home. He will be discharged home today with dexamethasone 6 mg p.o. daily for 5 more days to complete an day course. He is to monitor symptoms and return to ER or clinic if concerns should arise. He is to quarantine for a total of 20 days due to hospitalization. Symptom onset was sometime around March 30 and he tested + April 02. He was encouraged to quarantine until at least April 23 along with wearing a mask when he is outside of his home. He is to return to the ER or clinic if concerns arise follow-up with PCP in 1 week. Transaminitis noted during stay and monitor while on remdesivir treatments. Like secondary to Covid infection. No history of alcohol use. Monitor as outpatient once Covid infection clears. - Patient Instructions Diet: Regular Diet as Tolerated Activity: No Strenuous Activities Showering/Bathing: May Shower Notify Provider of: Fever, Increased Pain, Swelling and Redness, Drainage, Nausea and/or Vomiting Other/Special Instructions: Continue to quarantine until April 23. For a total of 20 days due to hospitalization. Monitor oxygen at home with pulse oximetry couple times a day. Return to ER or clinic if symptoms worsen or oxygen levels stay below 90%. - Discharge Plan *PRESCRIPTION DRUG MONITORING PROGRAM REVIEWED*: Not Applicable *COPY OF PRESCRIPTION DRUG MONITORING REPORT IN PATIENT SOPHIA: Not Applicable Prescriptions/Med Rec: dexAMETHasone [Dexamethasone] 6 mg PO DAILY 5 Days #8 tablet Home Medications: Home Meds Acetaminophen [Tylenol] 650 mg PO Q4H PRN tablet 04/17/20 [Rx] Albuterol/Ipratropium [Combivent Respimat] 1 puff INH Q4H PRN inhaler 04/17/20 [Rx] dexAMETHasone [Dexamethasone] 6 mg PO DAILY 5 Days #8 tablet 04/17/20 [Rx] Oxygen Therapy Mode: Nasal Cannula Oxygen Flow Rate (L/min): 2 Maintain SpO2% greater than: 90 Patient Handouts: COVID-19 Frequently Asked Questions, COVID-19: How to Protect Yourself and Others - CDC, Infection Prevention in the Home, Prevent the Spread of COVID-19 if You Are Sick - CDC Referrals: Sherly Hoang MD [Resident] - 04/29/20 2:30 pm - Discharge Summary/Plan Comment DC Time >30 min.: Yes (Discussing care with as well as arranging oxygen) - Patient Data Vitals - Most Recent: Last Vital Signs Temp 97.6 F 04/17/20 07:56 Pulse 79 04/17/20 07:56 Resp 20 04/17/20 07:56 BP 143/85 H 04/17/20 07:56 Pulse Ox 91 L 04/17/20 08:18 Weight - Most Recent: 93 kg I&O - Last 24 hours: Intake & Output 04/16/20 04/17/20 04/17/20 22:59 06:59 14:59 Intake Total 120 500 Output Total 900 Balance -780 500 Lab Results - Last 24 hrs: Laboratory Results - last 24 hr 04/17/20 04/17/20 Range/Units 05:50 05:50 WBC 7.57 (4.0-11.0) K/uL RBC 4.13 L (4.50-5.90) M/uL Hgb 11.9 L (13.0-17.0) g/dL Hct 35.2 L (38.0-50.0) % MCV 85.2 (80.0-98.0) fL MCH 28.8 (27.0-32.0) pg MCHC 33.8 (31.0-37.0) g/dL RDW Std Deviation 42.6 (28.0-62.0) fl RDW Coeff of Ortiz 14 (11.0-15.0) % Plt Count 317 (150-400) K/uL MPV 9.20 (7.40-12.00) fL Neut % (Auto) 72.4 (48.0-80.0) % Lymph % (Auto) 18.5 (16.0-40.0) % [place] % (Auto) 7.5 (0.0-15.0) % Eos % (Auto) 1.5 (0.0-7.0) % Baso % (Auto) 0.1 (0.0-1.5) % Neut # (Auto) 5.5 (1.4-5.7) K/uL Lymph # (Auto) 1.4 (0.6-2.4) K/uL [place] # (Auto) 0.6 (0.0-0.8) K/uL Eos # (Auto) 0.1 (0.0-0.7) K/uL Baso # (Auto) 0.0 (0.0-0.1) K/uL Nucleated RBC % 0.0 /100WBC Nucleated RBCs # 0 K/uL Sodium 141 (136-148) mmol/L Potassium 3.6 (3.5-5.1) mmol/L Chloride 106 (98-107) mmol/L Carbon Dioxide 26.3 (21.0-32.0) mmol/L BUN 26 H (7.0-18.0) mg/dL Creatinine 1.1 (0.8-1.3) mg/dL Est Cr Clr Drug Dosing 64.52 mL/min Estimated GFR (MDRD) > 60.0 ml/min Glucose 96 (74-106) mg/dL Calcium 8.3 L (8.5-10.1) mg/dL Total Bilirubin 0.5 (0.2-1.0) mg/dL AST 37 (15-37) IU/L ALT 115 H (14-63) IU/L Alkaline Phosphatase 127 H (46-116) U/L Total Protein 6.6 (6.4-8.2) g/dL Albumin 2.4 L (3.4-5.0) g/dL Globulin 4.2 H (2.6-4.0) g/dL Albumin/Globulin Ratio 0.6 L (0.9-1.6) Med Orders - Current: Current Medications Acetaminophen (Tylenol) 650 mg PO Q4H PRN PRN Reason: Pain (Mild 1-3)/fever Albuterol/Ipratropium (Combivent Respimat) 0 gm INH Q4H PRN PRN Reason: Dyspnea Last Admin: 04/13/20 15:15 Dose: 1 puff Documented by: Benzocaine/Menthol (Cepacol Sore Throat) 1 lozenge MUCMEM Q2H PRN PRN Reason: Sore Throat Last Admin: 04/17/20 07:59 Dose: 1 lozenge Documented by: Benzonatate (Tessalon Perles) 200 mg PO TID PRN PRN Reason: Cough Last Admin: 04/15/20 21:28 Dose: 200 mg Documented by: Dexamethasone (Dexamethasone) 6 mg PO DAILY REPLACED BY [facility] Stop: 04/21/20 09:01 Last Admin: 04/17/20 08:00 Dose: 6 mg Documented by: Enoxaparin Sodium (Lovenox) 40 mg SUBCUT Q24H REPLACED BY [facility] Last Admin: 04/16/20 15:45 Dose: 40 mg Documented by: Ondansetron HCl (Zofran) 4 mg IVPUSH Q4H PRN PRN Reason: Nausea Pantoprazole Sodium (Protonix) 40 mg PO ACBREAKFAST REPLACED BY [facility] Last Admin: 04/17/20 07:58 Dose: 40 mg Documented by: Discontinued Medications Furosemide (Lasix) 20 mg IVPUSH NOW ONE Stop: 04/16/20 11:09 Last Admin: 04/16/20 12:44 Dose: 20 mg Documented by: Remdesivir 200 mg/ Sodium (Chloride) 250 mls @ 250 mls/hr IV ONETIME ONE Stop: 04/12/20 16:29 Last Admin: 04/12/20 16:01 Dose: 250 mls/hr Documented by: Remdesivir 100 mg/ Sodium (Chloride) 100 mls @ 100 mls/hr IV Q24H EMILY Stop: 04/16/20 15:59 Last Admin: 04/16/20 15:46 Dose: 100 mls/hr Documented by: Sodium Chloride (Normal Saline) 500 mls @ 150 mls/hr IV ONETIME ONE Stop: 04/12/20 19:19 Last Admin: 04/12/20 16:01 Dose: 150 mls/hr Documented by: Iopamidol (Isovue Multipack-370 (76%)) 100 ml IVPUSH ONETIME ONE Stop: 04/12/20 17:25 Last Admin: 04/12/20 17:25 Dose: 100 ml Documented by: Melatonin (Melatonin) 6 mg PO ONETIME ONE Stop: 04/15/20 20:21 Last Admin: 04/15/20 21:29 Dose: 6 mg Documented by:
== END 2020-04-17 14:10 | disposition home or self-care (01) | DRG 177 ==
LOC: MW.MS 13:43
PROVIDERS: ADMIT Internal Medicine; ATTEND Internal Medicine
PROC: 5A0945A Assistance with Respiratory Ventilation, 24-96 Consecutive Hours, High Flow/Velocity Cannula (ICD-10-PCS; principal; 2020-04-12)
PROC: XW033E5 Introduction of Remdesivir Anti-infective into Peripheral Vein, Percutaneous Approach, New Technology Group 5 (ICD-10-PCS; 2020-04-12)
PROC: XW13325 Transfusion of Convalescent Plasma (Nonautologous) into Peripheral Vein, Percutaneous Approach, New Technology Group 5 (ICD-10-PCS; 2020-04-12)
DX: U07.1 COVID-19 (principal); J96.01 Acute respiratory failure with hypoxia; R74.01 Elevation of levels of liver transaminase levels; R79.89 Other specified abnormal findings of blood chemistry; Z79.51 Long term (current) use of inhaled steroids; Z79.899 Other long term (current) drug therapy; Z99.81 Dependence on supplemental oxygen; J22 Unspecified acute lower respiratory infection
CPT/HCPCS: 36415; 36430; 71275; 71275-26; 80053; 80076; 83735; 85025; 86850; 86900; 86901; 99222; 99231; 99232; 99238; A9270-GY; J1650; J1940; J7040; J7050; J8540; P9017; Q9967

== ENCOUNTER 2023-05-27 09:52 | Day surgery (SDC) | payer MEDICARE, BC ==
[~2023-05-27 09:52] MED LIST: Lactated Ringers 1,000 ML IV SCH; Sodium Chloride 0.9% 10 ML Syringe FLUSH PRN; Sodium Chloride 0.9% 2.5 ML Syringe FLUSH PRN; Sodium Chloride 0.9% 20 ML SDV IV PRN
[2023-05-27] MEDS ORDERED: Propofol 200 MG/20 ML SDV ONE (10:55)
[2023-05-27] MEDS ORDERED: propofoL 50 ML ONE (10:55)
[2023-05-27] MEDS ORDERED: fentaNYL 100 MCG/2 ML SDV ONE (10:55)
== END 2023-05-27 12:12 | disposition home or self-care (01) ==
LOC: MW.SDS 09:52
PROVIDERS: ATTEND Surgery
DX: D12.2 Benign neoplasm of ascending colon (principal); D12.5 Benign neoplasm of sigmoid colon; K29.50 Unspecified chronic gastritis without bleeding; D50.9 Iron deficiency anemia, unspecified; K57.30 Diverticulosis of large intestine without perforation or abscess without bleeding; K44.9 Diaphragmatic hernia without obstruction or gangrene; I10 Essential (primary) hypertension; Z79.899 Other long term (current) drug therapy
CPT/HCPCS: 43239; 45380; 88305; 88342; J2704; J3010; J7120; 00813; 99100